=== PATIENT | male | born 1980 ===

== ENCOUNTER 2016-09-14 16:05 | Observation (INO) | payer OTHER ==
[2016-09-14 16:44] VITALS: O2SAT 100
--- NOTE | 2016-09-14 16:45 | C.PDOC ---
History Of Present Illness 36-year-old male, presents to the emergency department with complaints of a headache. Patient states he developed a headache 02:00 yesterday, while he was having intercourse with "right before I exploded." Patient notes that headache resolved, but returned this morning at same time, during sex. States he took Tylenol at 06:30 this morning, resulting in him being referred to ED for evaluation, by PMD. Additionally, patient reports a Hx of similar headaches several years ago. Patient denies visual/speech changes, nausea/vomiting, dizziness, or any other associated symptoms. No other complaints at this time. PMD Shady Gusman MD. Time Seen by Provider: 09/14/16 16:44 Chief Complaint (Nursing): Headache History Per: Patient History/Exam Limitations: no limitations Onset/Duration Of Symptoms: Days Current Symptoms Are (Timing): Still Present Severity: Moderate Past Medical History Reviewed: Historical Data, Nursing Documentation, Vital Signs Vital Signs: Last Vital Signs Temp 98.5 F 09/14/16 16:32 Pulse 91 H 09/14/16 16:32 Resp 17 09/14/16 16:32 BP 139/92 H 09/14/16 16:32 Pulse Ox 100 09/14/16 17:45 Family History: States: No Known Family Hx - Social History Hx Tobacco Use: Yes Hx Alcohol Use: Yes Hx Substance Use: No - Immunization History Hx Tetanus Toxoid Vaccination: Yes (2009) Hx Influenza Vaccination: No Hx Pneumococcal Vaccination: No Review Of Systems Except As Marked, All Systems Reviewed And Found Negative. Constitutional: Negative for: Fever, Chills Eyes: Negative for: Vision Change Gastrointestinal: Negative for: Nausea, Vomiting Musculoskeletal: Negative for: Neck Pain Neurological: Positive for: Headache. Negative for: Weakness, Numbness, Dizziness Physical Exam - Physical Exam Appears: Non-toxic, No Acute Distress Skin: Warm, Dry, No Rash Head: Atraumatic, Normacephalic Eye(s): bilateral: Normal Inspection, PERRL, EOMI Nose: Normal Throat: Normal Neck: Normal Cardiovascular: Rhythm Regular Respiratory: Normal Breath Sounds Gastrointestinal/Abdominal: Normal Exam Back: Normal Inspection Extremity: Normal ROM Neurological/Psych: Oriented x3, Normal Speech, Normal Cognition, Normal Cranial Nerves, Normal Motor, Normal Sensation, Normal Reflexes, Other (No focal deficit) ED Course And Treatment - Laboratory Results Result Diagrams: 09/14/16 18:36 O2 Sat by Pulse Oximetry: 100 Medical Decision Making Medical Decision Making: Impression: Headache Diff Dx (includes but not limited to) Subarachnoid Hemorrhage Plan: * CT Head * BMP, CMP * CBC * Reglan, Tylenol, Morphine * Reassess and Disposition ED OBSERVATION Discharge: Yes Date of observation admission: 09/14/16 Time of observation admission: 16:30 - Observation admission statement Patient is being placed in observation because:: HEADACHE - Goals of Observation Goals of observation are:: RO SAH; SX IMPROVE; NEURO INTACT - Progress Note Progress Note: 09/14/16 16:45 D/W PMD 09/14/16 18:47 FEELS BETTER. NEURO INTACT CT NEG D/W PMD WILL FU IN OFFICE. GAVE PT PERCOCET RX Disposition Counseled Patient/Family Regarding: Studies Performed, Diagnosis, Need For Followup - Disposition Disposition: HOME/ ROUTINE Disposition Time: 18:47 Condition: IMPROVED - Clinical Impression Clinical Impression: Headache - Scribe Statement The provider has reviewed the documentation as recorded by the Scribe (Helen Johnson) All medical record entries made by the Scribe were at my direction and personally dictated by me. I have reviewed the chart and agree that the record accurately reflects my personal performance of the history, physical exam, medical decision making, and the department course for this patient. I have also personally directed, reviewed, and agree with the discharge instructions and disposition.
--- NOTE | 2016-09-14 18:05 | CT ---
PROCEDURE: CT HEAD WITHOUT CONTRAST. HISTORY: HEADACHE RO BLEED COMPARISON: None available. TECHNIQUE: Axial computed tomography images were obtained through the head/brain without intravenous contrast. Radiation dose: Total exam DLP = 875.67 mGy-cm. This CT exam was performed using one or more of the following dose reduction techniques: Automated exposure control, adjustment of the mA and/or kV according to patient size, and/or use of iterative reconstruction technique. FINDINGS: HEMORRHAGE: No intracranial hemorrhage. BRAIN: No mass effect or edema. No atrophy or chronic microvascular ischemic changes.Please note that MRI with diffusion imaging is more sensitive in the detection of acute ischemic event. VENTRICLES: No hydrocephalus. CALVARIUM: Unremarkable. PARANASAL SINUSES: Scattered opacification of the ethmoid air cells and right posterior sphenoid sinus. No air-fluid levels. MASTOID AIR CELLS: Unremarkable as visualized. No inflammatory changes. OTHER FINDINGS: None. IMPRESSION: No acute intracranial pathology identified. Scattered opacification of the ethmoid air cells and right posterior sphenoid sinus. Correlate clinically.
[2016-09-14 18:41] LABS: BASO # 0.1 K/uL (0.0-0.2); EOS # 0.1 K/uL (0.0-0.7); EOS % 1.2 % (0.0-4.0); HEMATOCRIT 45.9 % (35.0-51.0); LYMPH # 1.7 K/uL (1.0-4.3); MEAN CELL VOLUME 87.9 fL (80.0-94.0); MEAN CORPUSCULAR HEMOGLOBIN 29.6 pg (27.0-31.0); MEAN CORPUSCULAR HGB CONC 33.7 g/dL (33.0-37.0); MEAN PLATELET VOLUME 9.1 fL (7.2-11.7); MONO # 0.7 K/uL (0.0-0.8); MONO % 7.9 % (0.0-10.0); WHITE BLOOD COUNT 8.9 K/uL (4.8-10.8)
[2016-09-14 18:57] VITALS: BP 132/84; PULSE 86; RESP 16; TEMP 98.7
[2016-09-14 19:02] LABS: CHLORIDE 101 mmol/L (98-107); POTASSIUM 3.9 mmol/L (3.6-5.2); SODIUM 142 mmol/L (132-148)
[2016-09-14 19:05] LABS: BLOOD UREA NITROGEN 10 mg/dL (9-20); CARBON DIOXIDE 29 mmol/L (22-30); GFR AFRICAN-AMERICAN > 60
[2016-09-14 19:06] LABS: GLUCOSE,RANDOM 98 mg/dL (75-110)
== END 2016-09-14 18:47 | disposition home or self-care (01) ==
LOC: C.ER 16:05 → C.9OBSV 16:30
PROVIDERS: ADMIT Emergency Medicine; ATTEND Emergency Medicine
DX: R51 Headache (principal); Z87.891 Personal history of nicotine dependence
CPT/HCPCS: 36415; 70450; 80048; 85025; 99284; G0378; J2765